=== PATIENT | male | born 1950 | race Caucasian/White ===

== ENCOUNTER → 2016-11-09 | Outpatient (CLI) | payer OTHER | LOC: FIMAGING 15:35 | PROVIDERS: ATTEND Nurse Practitioner | DX: I82.502 Chronic embolism and thrombosis of unspecified deep veins of left lower extremity (principal) ==

== ENCOUNTER → 2017-02-01 | Outpatient (CLI) | payer OTHER | LOC: FIMAGING 15:29 | PROVIDERS: ATTEND Nurse Practitioner | DX: I82.402 Acute embolism and thrombosis of unspecified deep veins of left lower extremity (principal); D17.24 Benign lipomatous neoplasm of skin and subcutaneous tissue of left leg ==